=== PATIENT | female | born 1950 | race Caucasian/White ===

== ENCOUNTER 2020-10-29 06:41 | Outpatient (CLI) | payer MEDICARE, OTHER ==
[2020-10-29] MEDS ORDERED: ST. JOSEPH ASPI81 M1 PO (07:57)
[2020-10-29] MEDS ORDERED: LIPITOR TAB 2020 MG PO (07:57)
[2020-10-29] MEDS ORDERED: ALLERGY RELIEF1 EAC1 PO (07:57)
[2020-10-29] MEDS ORDERED: AMARYL1 MG PO (07:57)
[2020-10-29] MEDS ORDERED: BACLOFEN10 MG PO (07:58)
[2020-10-29] MEDS ORDERED: PLAVIX75 MG PO (07:59)
[2020-10-29] MEDS ORDERED: ALL DAY ALLERGY10 M2 PO (07:59)
[2020-10-29] MEDS ORDERED: CRANBERRY450 M2 PO (07:59)
[2020-10-29] MEDS ORDERED: DEPO-MEDRO80 MG/1 ML INJ (08:00)
[2020-10-29] MEDS ORDERED: DULERA 200 MCG8.8 GM INH (08:01)
[2020-10-29] MEDS ORDERED: FLONASE 0.05% N16 GM (08:03)
[2020-10-29] MEDS ORDERED: ISOSORBIDE MONO30 MG PO (08:04)
[2020-10-29] MEDS ORDERED: HYDROCODON-ACE1 EAC2 PO (08:04)
[2020-10-29] MEDS ORDERED: LEVOTHYROXINE75 MC1 PO (08:04)
[2020-10-29] MEDS ORDERED: MELOXICAM7.5 MG PO (08:05)
[2020-10-29] MEDS ORDERED: SINGULAIR10 MG PO (08:06)
[2020-10-29] MEDS ORDERED: ONDANSETRON HCL4 MG PO (08:06)
[2020-10-29] MEDS ORDERED: LOPRESSOR 50 MG50 MG PO (08:06)
[2020-10-29] MEDS ORDERED: OMEPRAZOLE MAGN20 M1 PO (08:06)
[2020-10-29] MEDS ORDERED: ROPINIROLE HCL1 MG PO (08:07)
[2020-10-29] MEDS ORDERED: SYMBICORT 160-1 INHA INH (08:07)
[2020-10-29] MEDS ORDERED: OYSCO 500+D TA1 EACH PO (08:07)
[2020-10-29] MEDS ORDERED: TIZANIDINE HCL4 MG PO (08:08)
[2020-10-29] MEDS ORDERED: VASCEPA1 GM PO (08:08)
[2020-10-29] MEDS ORDERED: ZETIA10 MG PO (08:09)
[2020-10-29] MEDS ORDERED: VITAMIN B-121000 MCG PO (08:09)
[2020-10-29] MEDS ORDERED: VENTOLIN HFA 66.7 GM INH (08:09)
[2020-10-29] MEDS ORDERED: FISH OIL 1,0001 EAC4 PO (08:10)
[2020-10-29] MEDS ORDERED: LISINOPRIL10 MG PO (17:36)
[2020-10-29 18:46] LABS: HEMOGLOBIN 13.9 gm/dl (12.3-15.3); RED BLOOD COUNT 4.32 M/UL (4.00-5.10); WHITE BLOOD COUNT 11.2 K/UL (4.5-11.0)
[2020-10-30 03:30] LABS: HEMOGLOBIN 13.6 gm/dl (12.3-15.3); RED BLOOD COUNT 4.27 M/UL (4.00-5.10); WHITE BLOOD COUNT 12.8 K/UL (4.5-11.0)
== END 2020-10-30 11:34 | disposition home or self-care (01) ==
LOC: CATH 06:41 → PROG CARE 16:04 → CATH 10-30 11:34
PROVIDERS: Internal Medicine Interventional Cardiology
DX: I25.118 Atherosclerotic heart disease of native coronary artery with other forms of angina pectoris (principal); I10 Essential (primary) hypertension; E78.5 Hyperlipidemia, unspecified; E11.9 Type 2 diabetes mellitus without complications; J44.9 Chronic obstructive pulmonary disease, unspecified; I71.4 Abdominal aortic aneurysm, without rupture; Z82.49 Family history of ischemic heart disease and other diseases of the circulatory system; Z83.3 Family history of diabetes mellitus; Z87.891 Personal history of nicotine dependence; Z79.899 Other long term (current) drug therapy
CPT/HCPCS: 36415; 80048; 82550; 82553; 82962; 84484; 85025; 85347; 93005; 94664; 94760; 99152; 99153; C1725; C1769; C1874; C1887; C9600; J0360; J1644; J2250; J3010; J7030; J7040; Q9965